=== PATIENT | female | born 1975 | race Hispanic/Latino ===

== ENCOUNTER 2018-12-11 15:47 | Emergency (ER) | payer OTHER ==
[~2018-12-11] VITALS: Ht 157.5 cm; Wt 63.5 kg
--- NOTE | 2018-12-11 16:32 | Diagnostic Imaging Report ---
HAND 3+ VIEWS RIGHT - 3 views HISTORY: Pain. Injured finger. Rule out fracture of the fourth digit after bruising and pain. COMPARISON: None available. FINDINGS: Bones: Possible fracture of the fourth proximal phalanx head intra-articular involvement involving the PIP. Osseous alignment is within normal limits. Joints: The joint spaces are well-maintained. Soft tissues: The soft tissues appear unremarkable. IMPRESSION: 1. Possible fracture of the fourth proximal phalanx head intra-articular involvement involving the PIP. 2. Suboptimal positioning of the hand which limits evaluation of the phalanges. Signed by: Dr. Jesse Calderon M.D. on 12/11/2018 4:29 PM
[2018-12-11 17:29] VITALS: BP 110/65
== END 2018-12-11 17:29 | disposition home or self-care (01) ==
LOC: ER 15:47
DX: S62.664A Nondisplaced fracture of distal phalanx of right ring finger, initial encounter for closed fracture (principal); X58.XXXA Exposure to other specified factors, initial encounter; Y92.89 Other specified places as the place of occurrence of the external cause; F79 Unspecified intellectual disabilities
CPT/HCPCS: 99283